=== PATIENT | male | born 1985 ===

== ENCOUNTER 2017-03-08 03:48 | Emergency (ER) | payer SELFPAY | END 2017-03-08 04:18 | disposition left against medical advice (07) | LOC: C.ER 03:48 | DX: F32.9 Major depressive disorder, single episode, unspecified (principal); Z02.9 Encounter for administrative examinations, unspecified ==

== ENCOUNTER 2017-07-01 15:51 | Emergency (ER) | payer MEDICAID ==
[2017-07-01 16:03] VITALS: BP 144/70; PULSE 75; TEMP 98.5; O2SAT 98
--- NOTE | 2017-07-01 16:17 | C.PDOC ---
History Of Present Illness 31 yr old male presents to the ER for evaluation of a itchy rash for the past 2 weeks. Patient states the rash started on his arms but now also has some on his right lower leg. States he has been applying a cream with no relief. Denies fever, chills, SOB or headache. Time Seen by Provider: 07/01/17 16:05 Chief Complaint (Nursing): Abnormal Skin Integrity History Per: Patient History/Exam Limitations: no limitations Onset/Duration Of Symptoms: Days (2 weeks) Past Medical History Reviewed: Historical Data, Nursing Documentation, Vital Signs Vital Signs: Last Vital Signs Temp 98.5 F 07/01/17 15:53 Pulse 75 07/01/17 15:53 Resp 20 07/01/17 16:26 BP 144/70 07/01/17 15:53 Pulse Ox 98 07/01/17 16:56 - Medical History PMH: Anxiety, Depression Family History: States: No Known Family Hx - Social History Hx Alcohol Use: Yes Hx Substance Use: No - Immunization History Hx Tetanus Toxoid Vaccination: No Hx Influenza Vaccination: No Review Of Systems Except As Marked, All Systems Reviewed And Found Negative. Constitutional: Negative for: Fever, Chills Respiratory: Negative for: Shortness of Breath Skin: Positive for: Rash (Itchy rash to bilateral arms and right lower leg) Neurological: Negative for: Headache Physical Exam - Physical Exam Appears: Non-toxic, No Acute Distress Skin: Warm, Dry, Rash (Dry scaly lesions to bilateral arms. 1 lesion to right lower leg.) Head: Atraumatic, Normacephalic Eye(s): bilateral: Normal Inspection, PERRL, EOMI Oral Mucosa: Moist Cardiovascular: Rhythm Regular, No Murmur Respiratory: Normal Breath Sounds, No Rales, No Rhonchi, No Stridor, No Wheezing Extremity: Normal ROM, Capillary Refill (<2 secs), No Swelling Neurological/Psych: Oriented x3, Normal Speech, Normal Motor, Normal Sensation ED Course And Treatment O2 Sat by Pulse Oximetry: 98 (RA) Pulse Ox Interpretation: Normal Medical Decision Making Medical Decision Making: Patient with itchy rash, appears to be contact dermatitis vs fungal, patient scratching area has couple excoriations. No signs of cellulitis. Patient also asking for information for outpatient therapy, has anxiety. Denies any SI,HI, depression or other complaints. Disposition Counseled Patient/Family Regarding: Diagnosis, Need For Followup, Rx Given - Disposition Referrals: [facility] [Outside] Disposition: HOME/ ROUTINE Disposition Time: 16:16 Condition: STABLE Additional Instructions: Please [facility] with [facility] at [address] [place] [address]. Please call [phone] or ext [phone] to arrange appointment. If you need to speak to someone immediately call Crisis Hotline [phone] apply cream to affected areas. follow up with guest service supervisor if the rash persists Prescriptions: Clotrimazole/Betamethasone [Lotrisone] 15 gm EXT BID #1 tube Instructions: Contact Dermatitis (ED) Forms: [employer] (Belarusian) - POA Present On Arrival: None - Clinical Impression Clinical Impression: Contact dermatitis, Anxiety - PA / [employer] / Resident Statement MD/DO has reviewed & agrees with the documentation as recorded. - Scribe Statement The provider has reviewed the documentation as recorded by the Scribe Flor Johnson All medical record entries made by the Scribe were at my direction and personally dictated by me. I have reviewed the chart and agree that the record accurately reflects my personal performance of the history, physical exam, medical decision making, and the department course for this patient. I have also personally directed, reviewed, and agree with the discharge instructions and disposition.
[2017-07-01 16:27] VITALS: RESP 20
== END 2017-07-01 16:26 | disposition home or self-care (01) ==
LOC: C.ER 15:51
DX: L25.9 Unspecified contact dermatitis, unspecified cause (principal); F41.9 Anxiety disorder, unspecified